=== PATIENT | male | born 1970 | race Two or more races ===

== ENCOUNTER 2020-07-19 10:18 | Emergency (ER) | payer MEDICAID ==
[~2020-07-19] VITALS: Ht 165.1 cm; Wt 72.6 kg
[2020-07-19] MEDS ORDERED: HYDROcodone-ACET 10/325MG TAB PO ONE (16:00)
[2020-07-19 18:55] VITALS: BP 158/96
== END 2020-07-19 19:29 | disposition short-term general hospital (02) ==
LOC: ER 10:18
DX: S02.80XA Fracture of other specified skull and facial bones, unspecified side, initial encounter for closed fracture (principal); S02.2XXA Fracture of nasal bones, initial encounter for closed fracture; I10 Essential (primary) hypertension; Y08.89XA Assault by other specified means, initial encounter; Y93.89 Activity, other specified; Y92.89 Other specified places as the place of occurrence of the external cause; Y99.8 Other external cause status
CPT/HCPCS: 70450; 70486